=== PATIENT | female | born 1995 | race Asian ===

== ENCOUNTER 2024-08-02 20:15 | Emergency (ER) | payer BC ==
[~2024-08-02] VITALS: Ht 160 cm; Wt 98.4 kg
[2024-08-02 21:08] VITALS: BP 131/93; TEMP 98.7; O2SAT 100
[2024-08-02] MEDS ORDERED: SULF1TAB47 PO (21:57)
[2024-08-02] MEDS ORDERED: CEPH-570 PO (21:57)
== END 2024-08-02 22:11 | disposition home or self-care (01) ==
LOC: ER 20:21
DX: L08.9 Local infection of the skin and subcutaneous tissue, unspecified (principal); Q18.1 Preauricular sinus and cyst; E11.9 Type 2 diabetes mellitus without complications; Z60.2 Problems related to living alone